=== PATIENT | female | born 1985 | race African-American/Black ===

== ENCOUNTER 2017-12-11 07:57 | Observation (INO) | payer SELFPAY ==
[~2017-12-11] VITALS: Ht 165.1 cm; Wt 99.8 kg
[2017-12-11] MEDS ORDERED: CALC-1042 PO (08:43)
[2017-12-11] MEDS ORDERED: PREN-142 PO (08:43)
[2017-12-11 09:40] LABS: CLARITY URINE CLOUDY (CLEAR); COLOR URINE YELLOW (YELLOW); KETONES URINE NEGATIVE (NEGATIVE); LEUKOCYTE ESTERASE URINE 1+ (NEGATIVE); NITRITE URINE NEGATIVE (NEGATIVE); OCCULT BLOOD URINE NEGATIVE (NEGATIVE); PROTEIN URINE NEGATIVE (NEGATIVE); SPECIFIC GRAVITY URINE 1.016 (1.005-1.030); UROBILINOGEN URINE 0.2 E.U./dL (0.2-1.0)
== END 2017-12-12 11:30 | disposition home or self-care (01) ==
LOC: L&D 07:57
PROVIDERS: ADMIT Obstetrics & Gynecology; ATTEND Obstetrics & Gynecology
DX: O26.893 Other specified pregnancy related conditions, third trimester (principal); R10.2 Pelvic and perineal pain; Z3A.32 32 weeks gestation of pregnancy
CPT/HCPCS: 81003; 82731; 99281; G0378

== ENCOUNTER 2017-12-13 14:25 | Observation (INO) | payer SELFPAY | END 2017-12-13 17:30 | disposition home or self-care (01) | LOC: L&D 14:25 | PROVIDERS: ADMIT Obstetrics & Gynecology; ATTEND Obstetrics & Gynecology | DX: O26.893 Other specified pregnancy related conditions, third trimester (principal); O36.8130 Decreased fetal movements, third trimester, not applicable or unspecified; E86.0 Dehydration; R10.9 Unspecified abdominal pain; Z3A.32 32 weeks gestation of pregnancy | CPT/HCPCS: 99281; G0378 ==

== ENCOUNTER → 2017-12-13 | Emergency (ER) | payer SELFPAY ==
[~2017-12-13] MED LIST: CALC-1042 PO; PREN-142 PO
== END | disposition home or self-care (01) ==
LOC: ER 14:12
DX: Z53.21 Procedure and treatment not carried out due to patient leaving prior to being seen by health care provider (principal)